=== PATIENT | female | born 1990 | race Caucasian/White ===

== ENCOUNTER → 2020-10-17 09:59 | Outpatient (BNVA) | payer SELFPAY | PROVIDERS: Visit Provider Nurse Practitioner Family | DX: M47.894 Other spondylosis, thoracic region (principal); M25.551 Pain in right hip; G89.29 Other chronic pain; M54.6 Pain in thoracic spine; M54.5 Low back pain | CPT/HCPCS: 72072; 72100; 73502 ==

== ENCOUNTER 2025-01-24 17:53 | Outpatient (CLI) | payer MEDICAID, SELFPAY ==
--- NOTE | 2025-01-24 18:19 | XRR_ITS ---
PROCEDURE INFORMATION: Exam: XR Lumbosacral Spine Exam date and time: 01/24/2025 6:32 PM Age: 34 years old Clinical indication: Pain; Sciatica; Right; Additional info: Sciatica RT side TECHNIQUE: Imaging protocol: Radiologic exam of the lumbosacral spine. Views: 2 or 3 views. COMPARISON: CR XR lumbar spine 2-3V* [id number] 10/17/2020 10:02 AM FINDINGS: Bones/joints: No acute fracture. Normal alignment. Sequela of degenerative disc disease of L5-S1 including mild disc height loss and early endplate osteophyte formation. Soft tissues: Unremarkable. XR/XR lumbar spine 2-3V* [id number] IMPRESSION: No acute findings. Degenerative disc disease at L5-S1.
--- NOTE | 2025-01-24 18:19 | XRR_ITS ---
PROCEDURE INFORMATION: Exam: XR Bilateral Sacroiliac Joints Exam date and time: 01/24/2025 6:28 PM Age: 34 years old Clinical indication: Pain in coccyx area; Additional info: Sacroiliac pain TECHNIQUE: Imaging protocol: XR bilateral XR of the sacroiliac joints. Views: 3 or more views. COMPARISON: CR XR hip RT 2-3V wo/w pel* [id number] 10/17/2020 10:02 AM FINDINGS: Bones/joints: Normal. No acute fracture. Soft tissues: Normal. XR/XR sacroiliac jts m 3V [id number] IMPRESSION: No acute findings.
== END 2025-01-24 17:54 | disposition home or self-care (01) ==
LOC: RAD 17:57
PROVIDERS: Absent Provider Nurse Practitioner Family; Visit Provider Nurse Practitioner Family
DX: M54.31 Sciatica, right side (principal); M53.3 Sacrococcygeal disorders, not elsewhere classified
CPT/HCPCS: 72100; 72202

== ENCOUNTER → 2025-03-01 15:30 | Outpatient (BNVA) | payer MEDICAID, SELFPAY | PROVIDERS: PCP Nurse Practitioner Family; Visit Provider Orthopaedic Surgery | DX: M54.50 Low back pain, unspecified (principal); G89.29 Other chronic pain | CPT/HCPCS: 72110 ==